=== PATIENT | female | born 1985 | race African-American/Black ===

== ENCOUNTER 2018-08-22 11:49 | Emergency (ER) | payer OTHER, SELFPAY ==
--- NOTE | 2018-08-22 16:07 | RAD REPORT ---
EXAM DESCRIPTION: US - TRANSVAG OB - 08/22/2018 3:57 pm CLINICAL HISTORY: VAGINAL BLEEDING COMPARISON: No comparisons FINDINGS: The uterus is normal in size, shape and echotexture. The uterus measures 7.5 x 4.6 x 4.0 c m. Endometrium measures 7 mm with no evidence of IUP. The maternal adnexa and ovaries are within normal limits. Normal Doppler blood flow was demonstrated to both ovaries. IMPRESSION: No evidence of IUP seen. In the setting of an elevated HCG level, findings would indicat e of unknown location. Close interval follow-up pelvic sonography in 7-10 days and serial H CG levels would be recommended.
[2018-08-22 16:23] LABS: Urine Blood 3+ (NEG); Urine Glucose NEGATIVE (NEG); Urine Protein 1+ (NEG); Urine Specific Gravity 1.025 (1.005-1.030)
--- NOTE | 2018-08-22 17:09 | ER ---
Nurse's Notes [facility] Name: Kasey Stapleton Age: 33 yrs Sex: Female : 1985 Arrival Date: 08/22/2018 Time: 11:52 Bed 7 Private MD: None, None Diagnosis: Threatened ;Acute upper respiratory infection, unspecified Presentation: 08/22 11:54 Presenting complaint: Patient states: suprapubic pain x 1 day, sore throat, "I want to sv see how far along I am, I'm .". Transition of care: patient was not received from another setting of care. Onset of symptoms was August 21, 2018. Care prior to arrival: None. 11:54 Method Of Arrival: Ambulatory sv 11:54 Acuity: MARGARET 3 sv Triage Assessment: 11:54 General: Appears in no apparent distress. uncomfortable, Behavior is cooperative, sv crying. Pain: Complains of pain in suprapubic area. Neuro: Level of Consciousness is awake, alert, obeys commands, Oriented to person, place, time, situation, Gait is steady. Respiratory: Respiratory effort is even, unlabored, Respiratory pattern is regular, symmetrical. GI: Reports lower abdominal pain. 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 Denies injuries from another. Nutritional hb screening: No deficits noted. Tuberculosis screening: No symptoms or risk factors identified. Fall Risk None identified. Assessment: 13:30 General: Appears in no apparent distress. Behavior is calm, cooperative. Pain: Pain hb currently is 1 out of 10 on a pain scale. Neuro: Level of Consciousness is awake, alert, obeys commands, Oriented to person, place, time, situation. Cardiovascular: Capillary refill < 3 seconds Patient's skin is warm and dry. Respiratory: Airway is patent Respiratory effort is even, unlabored, Respiratory pattern is regular, symmetrical. GI: Abdomen is non-distended, Bowel sounds present X 4 quads. Abd is soft and non tender X 4 quads. : Reports pain in suprapubic area. EENT: No signs and/or symptoms were reported regarding the EENT system. Derm: Skin is intact, is healthy with good turgor. Musculoskeletal: No signs and/or symptoms reported regarding the musculoskeletal system. 14:30 Reassessment: Patient appears in no apparent distress at this time. No changes from hb previously documented assessment. Patient and/or family updated on plan of care and expected duration. Pain level reassessed. Patient is alert, oriented x 3, equal unlabored respirations, skin warm/dry/pink. 15:30 Reassessment: Patient appears in no apparent distress at this time. No changes from hb previously documented assessment. Patient and/or family updated on plan of care and expected duration. Pain level reassessed. Patient is alert, oriented x 3, equal unlabored respirations, skin warm/dry/pink. 17:10 Reassessment: Pt was seen walking out seemingly upset with friend she was with. When ED ss staff called out her name in attempt to see if anything was wrong or if she was leaving, she continued to leave and get into her friends car. Attempted to call phone number on file which is an Aunt's phone number which does not seem to be a working number as patient still may have IV catheter in place. [place] [employer] has been notified and reports they will do a wellness check to the address on file as soon as they have an officer available. Vital Signs: 11:56 BP 151 / 111; Pulse 94; Resp 16; Temp 98.9; Pulse Ox 99% ; Height 5 ft. 6 in. (167.64 sv cm); ED Course: 11:52 Patient arrived in ED. dl4 11:52 None, None is Private Physician. dl4 11:55 Triage completed. sv 11:58 Arm band placed on. sv 13:42 Meng Gregorio PA is PHCP. jmm 13:42 Derrick Marrero MD is Attending Physician. jmm 14:00 Patient has correct armband on for positive identification. Placed in gown. Bed in low hb position. Call light in reach. Side rails up X 1. 14:02 Megan Johnston, RN is Primary Nurse. hb 15:15 Missed attempt(s): 20 gauge in right antecubital area. hb 15:20 Inserted saline lock: 22 gauge in right forearm, using aseptic technique. Blood hb collected. 16:01 TRANSVAG OB In Process Unspecified. EDMS 17:22 No provider procedures requiring assistance completed. Pt left with IV in place. SEE NURSES notes for further details. Administered Medications: No medications were administered Outcome: 17: Eloped from patient exam room, after seeing physician 17:22 Condition: stable 17:31 Patient left the ED. Signatures: Dispatcher [employer] EDMS Cydney Sánchez, RN RN Meng Gregorio PA PA jmm Smirch, Shelby, RN RN Megan Johnston RN RN hb Luna, David dl4 Corrections: (The following items were deleted from the chart) 11:57 11:56 Pulse Ox 99%; Temp 98.9F; Height 5 ft[address] [facility] [place]
--- NOTE | 2018-08-22 17:10 | EDPHYS ---
Physician Documentation [facility] Name: Kasey Stapleton Age: 33 yrs Sex: Female : 1985 Arrival Date: 08/22/2018 Time: 11:52 Bed 7 Private MD: None, None ED Physician Derrick Marrero HPI: 08/22 14:16 This 33 yrs old Black Female presents to ER via Ambulatory with complaints of Abdominal jmm Pain. 14:16 The patient presents with abdominal pain suprapubic. Onset: The symptoms/episode jmm began/occurred gradually. 17:04 This is a 33 year old that presents to the ED with complaints of suprapubic pain, jmm vaginal bleeding, sore throat and cough beginning yesterday. LMP mid June. . 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 17:04 : Positive for pelvic pain. 17:04 All other systems are negative. Exam: 17:04 Head/Face: atraumatic. Eyes: EOMI, no conjunctival erythema appreciated ENT: Moist jmm Mucus Membranes Neck: Trachea midline, Supple Chest/axilla: Normal chest wall appearance and motion. Cardiovascular: Regular rate and rhythm. No edema appreciated Respiratory: Normal respirations, no respiratory distress appreciated 17:04 Constitutional: The patient appears in no acute distress, alert, awake. 17:04 ENT: Posterior pharynx: erythema, that is mild. 17:04 Abdomen/GI: Inspection: abdomen appears normal, Bowel sounds: normal, Palpation: soft, mild abdominal tenderness, in the suprapubic area. 17:04 Back: ROM is normal. 17:04 Musculoskeletal/extremity: ROM: intact in all extremities. 17:04 Skin: Appearance: Color: normal in color. 17:04 Neuro: Orientation: is normal, Mentation: is normal, Memory: is normal. 17:04 Psych: Behavior/mood is pleasant, cooperative. Vital Signs: 11:56 BP 151 / 111; Pulse 94; Resp 16; Temp 98.9; Pulse Ox 99% ; Height 5 ft. 6 in. (167.64 sv cm); MDM: 14:16 Patient medically screened. [facility] 17:04 Data reviewed: vital signs, nurses notes. ED course: I discussed US findings with the [facility] patient. Labs still pending. Patient eloped from the ED. PD notified. . 08/22 14:23 Order name: Urine Dipstick-Ancillary (obtain specimen); Complete Time: 16:22 [facility] 08/22 14:23 Order name: Urine Test (obtain specimen); Complete Time: 16:22 [facility] 08/22 15:28 Order name: IV Saline Lock; Complete Time: 16:22 [facility] 08/22 15:28 Order name: Labs collected and sent; Complete Time: 16:22 [facility] 08/22 15:28 Order name: Urine Dipstick--Ancillary (enter results); Complete Time: 16:29 08/22 15:28 Order name: Urine --Ancillary (enter results); Complete Time: 16:29 08/22 15:38 Order name: TRANSVAG OB; Complete Time: 16:12 [facility] 08/22 15:28 Order name: NPO; Complete Time: 16:22 [facility] Administered Medications: No medications were administered Disposition: 18:40 Co-signature as Attending Physician, Derrick Marrero MD. ma2 Disposition: 08/22/18 17:09 Patient left the facility after being seen by provider. Preliminary diagnosis are Threatened , Acute upper respiratory infection, unspecified. - Patient left due to unknown. Signatures: Dispatcher [employer] [facility] Cydney Sánchez, Meng Rojas RN, PA PA [facility] Katharina Mustafa RN RN ss Alzahri, Mohammad, MD MD ma2 Corrections: (The following items were deleted from the chart) 15:38 15:30 1st Trimest Single 1st Fetus+US.RAD.BRZ ordered. [facility] 17:31 17:09 08/22/2018 17:09 Patient left the facility after being seen by provider. Preliminary diagnosis is Threatened ; Acute upper respiratory infection, unspecified. Reason stated they are leaving due to unknown. jmm
[2018-08-22 17:38] VITALS: BP 151/111; TEMP 98.9; O2SAT 99
== END 2018-08-22 17:31 | disposition left against medical advice (07) ==
LOC: ER 11:49
DX: O20.0 Threatened abortion (principal); J06.9 Acute upper respiratory infection, unspecified; Z53.20 Procedure and treatment not carried out because of patient's decision for unspecified reasons; Z3A.00 Weeks of gestation of pregnancy not specified
CPT/HCPCS: 76813; 81003; 81025; 99283

== ENCOUNTER 2019-08-08 19:16 | Emergency (ER) | payer OTHER, SELFPAY ==
[2019-08-08] MEDS ORDERED: ALBUTEROL 2.5 MG/3 ML NEB SOL ONE (20:40)
[2019-08-08] MEDS ORDERED: DIPHENHYDRAMINE 25 MG TAB/CAP ONE (20:40)
[2019-08-08] MEDS ORDERED: FAMOTIDINE 20 MG TAB ONE (20:41)
[2019-08-08] MEDS ORDERED: IPRATROPIUM BROM 0.5MG/2.5ML ONE (20:41)
[2019-08-08 22:42] LABS: Urine Blood NEGATIVE (NEG); Urine Glucose NEGATIVE (NEG); Urine Protein NEGATIVE (NEG); Urine Specific Gravity >1.030 (1.005-1.030)
[2019-08-08 22:47] LABS: Urine Bacteria <20 /HPF (<20); Urine Culture Reflex Order NOT NEEDED; Urine RBC <5 /HPF (NONE SEEN)
[2019-08-08 23:11] LABS: Absolute Lymphocytes (CBC) 3.5 K/uL (0.7-4.9); Basophils % 0.4 % (0-1.3); Hematocrit 39.1 % (36.0-45.0); MPV 10.1 fL (7.6-11.3); RBC Red Blood Cell Count 4.42 M/uL (3.86-4.86)
[2019-08-08 23:48] LABS: ALT/SGPT 33 U/L (12-78); AST/SGOT 26 U/L (15-37); Albumin 3.8 g/dL (3.4-5.0); Alkaline Phosphatase 73 U/L (45-117); BUN Blood Urea Nitrogen 17 mg/dL (7-18); Bicarbonate 27 mmol/L (21-32); Bilirubin Direct < 0.1 mg/dL (0-0.2); Bilirubin Total 0.1 mg/dL (0.2-1.0); Glucose Level 90 mg/dL (74-106); Lipase 205 U/L (73-393); Potassium 3.6 mmol/L (3.5-5.1); Protein, Total 7.9 g/dL (6.4-8.2); Sodium Level 139 mmol/L (136-145)
[2019-08-09 00:09] LABS: HCG, Quantitative 58817 mIU/mL (1-3)
--- NOTE | 2019-08-09 00:09 | EDPHYS ---
Physician Documentation [facility] Name: Kasey Stapleton Age: 34 yrs Sex: Female : 1985 Arrival Date: 08/08/2019 Time: 19:17 Bed 20 Private MD: ED Physician Jason Aldrich HPI: 08/08 20:35 This 34 yrs old Black Female presents to ER via Ambulatory with complaints of Breathing cp Difficulty - 7 wks preg. 20:35 The patient has shortness of breath at rest. Onset: The symptoms/episode began/occurred cp today. Duration: The symptoms are continuous, and are steadily getting worse. Associated signs and symptoms: Pertinent positives: non-productive cough, subjective fever last night, Pertinent negatives: chest pain, vomiting. Severity of symptoms: in the emergency department the symptoms are unchanged despite home interventions. Patient reports history of allergy to cats and after visiting [facility] today, she started having shortness of breath and feeling like throat was tight. Patient reports she is 7 weeks and since having recent US, c/o right upper abdomen pain. 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 - Social history:: Smoking status: Patient/guardian denies using tobacco, but has a distant history of tobacco abuse. - Ebola Screening: : Patient negative for fever greater than or equal to 101.5 degrees Fahrenheit, and additional compatible Ebola Virus Disease symptoms Patient denies exposure to infectious person Patient denies travel to an Ebola-affected area in the 21 days before illness onset No symptoms or risks identified at this time. ROS: 20:45 Constitutional: Negative for body aches, chills, fever, poor PO intake. cp 20:45 Eyes: Negative for injury, pain, redness, and discharge. cp 20:45 ENT: Negative for drainage from ear(s), ear pain, difficulty swallowing, difficulty handling secretions. 20:45 Cardiovascular: Negative for chest pain, edema. 20:45 Respiratory: Positive for cough, with no reported sputum, shortness of breath. 20:45 Abdomen/GI: Positive for abdominal pain, Negative for vomiting, diarrhea, constipation. 20:45 Back: Negative for radiated pain. 20:45 Skin: Negative for rash. 20:45 Neuro: Negative for headache, syncope, weakness. 20:45 All other systems are negative. Exam: 20:55 Constitutional: The patient appears in no acute distress, alert, awake, non-toxic, well cp developed, well nourished. 20:55 Head/Face: Normocephalic, atraumatic. cp 20:55 Eyes: Periorbital structures: appear normal, Pupils: equal, round, and reactive to cp light and accomodation, Extraocular movements: intact throughout, Conjunctiva: normal, no exudate, no injection, Sclera: no appreciated abnormality, Lids and lashes: appear normal, bilaterally. 20:55 ENT: External ear(s): are unremarkable, Ear canal(s): are normal, clear, TM's: cp dullness, bilaterally, Nose: is normal, Mouth: Lips: moist, Oral mucosa: pink and intact, moist, Posterior pharynx: is normal, airway is patent, no erythema, no exudate, Uvula: midline, swelling, is not appreciated. 20:55 Neck: ROM/movement: is normal, is supple, without pain, no range of motions limitations, no nuchal rigidity. 20:55 Chest/axilla: Inspection: normal, Palpation: is normal, no crepitus, no tenderness. 20:55 Cardiovascular: Rate: normal, Rhythm: regular, Edema: is not appreciated, JVD: is not appreciated. 20:55 Respiratory: the patient does not display signs of respiratory distress, Respirations: labored breathing, that is mild, intercostal retractions, are absent, shallow respirations, are not present, Breath sounds: decreased breath sounds, are not appreciated, stridor, is not appreciated, wheezing: is not appreciated. 20:55 Abdomen/GI: Inspection: gravid appearance, is noted, Bowel sounds: active, all quadrants, Palpation: soft, in all quadrants, mild abdominal tenderness, in the right upper quadrant, rebound tenderness, is not appreciated, involuntary guarding, is not appreciated. 20:55 Back: pain, is absent, ROM is normal. 20:55 Skin: no rash present. 20:55 Neuro: Orientation: to person, place \T\ time. Mentation: is normal, Motor: moves all fours, strength is normal. Vital Signs: 19:36 BP 153 / 99; Pulse 98; Resp 21 S; Temp 98.4(O); Pulse Ox 100% on R/A; Weight 65.77 kg ca1 (R); Height 5 ft. 6 in. (167.64 cm) (R); Pain 9/10; 20:35 BP 136 / 86; Pulse 94; Resp 16; Temp 98.5; Pulse Ox 99% on R/A; ch 21:24 BP 144 / 95; Pulse 92; Pulse Ox 100% ; ch 22:47 BP 134 / 82; Pulse 90; Resp 14; Pulse Ox 100% on R/A; ch 08/09 00:00 BP 126 / 80; Pulse 84; Resp 12; Temp 98.1; Pulse Ox 99% on R/A; Pain 3/10; ch 08/08 19:36 Body Mass Index 23.40 (65.77 kg, 167.64 cm) ca1 MDM: 08/08 20:32 Patient medically screened. cp 21:00 Differential diagnosis: asthma, Bronchitis anaphylaxis, angioedema, pancreatitis, cp non-specific abdominal pain. 08/09 00:07 Data reviewed: vital signs, nurses notes, lab test result(s), radiologic studies, cp ultrasound, and as a result, I will discharge patient. 00:07 Response to treatment: the patient's symptoms have markedly improved after treatment. cp 00:08 Special discussion: Based on the patient's Hx, exam, and Dx evaluation, there is no cp indication for emergent surgery or inpatient Tx. It is understood by the patient/guardian that if the Sx's persist or worsen they need to return immediately for re-evaluation. 08/08 19:38 Order name: Flu; Complete Time: 21:42 ca1 08/08 21:42 Interpretation: Reviewed. cp 08/08 19:38 Order name: Strep; Complete Time: 21:42 ca1 08/08 21:42 Interpretation: Reviewed. cp 08/08 20:18 Order name: Throat Culture EDAR 08/08 21:55 Order name: Basic Metabolic Panel; Complete Time: 02:27 cp 08/08 21:55 Order name: CBC with Diff; Complete Time: 23:32 cp 08/08 23:32 Interpretation: Normal except: WBC 16.9; NEUT A 11.9. 08/08 21:55 Order name: Creatinine for Radiology; Complete Time: 23:32 cp 08/08 21:55 Order name: Hepatic Function; Complete Time: 02:27 cp 08/08 23:58 Interpretation: Normal except: BILIT 0.1; GLOB 4.1; A/G 0.9. cp 08/08 21:55 Order name: Lipase; Complete Time: 02:27 cp 08/08 23:58 Interpretation: Within normal limits: LIP 205. cp 08/08 21:55 Order name: Urine Microscopic Only; Complete Time: 23:05 cp 08/08 21:55 Order name: US Transvaginal Ob cp 08/08 21:55 Order name: Beta hcg; Complete Time: 02:27 cp 08/08 22:30 Order name: Urine Dipstick--Ancillary (enter results); Complete Time: 22:47 mw2 08/08 22:47 Interpretation: Reviewed. 08/08 22:30 Order name: Urine --Ancillary (enter results); Complete Time: 22:47 mw2 08/08 22:47 Interpretation: Reviewed. 08/08 21:55 Order name: IV Saline Lock; Complete Time: 23:00 cp 08/08 21:55 Order name: Labs collected and sent; Complete Time: 23:00 cp 08/08 21:55 Order name: NPO; Complete Time: 22:13 cp 08/08 21:55 Order name: Urine Dipstick-Ancillary (obtain specimen); Complete Time: 22:13 cp 08/08 21:55 Order name: Urine Test (obtain specimen); Complete Time: 22:12 cp Administered Medications: 08/08 20:40 Drug: Benadryl 50 mg Route: PO; fc 22:13 Follow up: Response: No adverse reaction ch 20:40 Drug: Pepcid 20 mg Route: PO; fc 22:13 Follow up: Response: No adverse reaction ch 20:43 Drug: Albuterol 2.5 mg Route: Inhalation; fc 22:14 Follow up: Response: No adverse reaction ch 20:43 Drug: AtroVENT Aerosol 0.5 mg Route: Inhalation; fc 22:13 Follow up: Response: No adverse reaction Disposition: 08/09 07:37 Co-signature as Attending Physician, Jason Aldrich MD I agree with the assessment and tw4 plan of care. Disposition: 08/09/19 00:08 Discharged to Home. Impression: Allergy, unspecified, related conditions, unspecified, first trimester, Upper abdominal pain, unspecified. - Condition is Stable. - Discharge Instructions: Abdominal Pain During , Allergies, Adult. - Prescriptions for Albuterol Sulfate 90 mcg/actuation - inhale 1-2 puff by INHALATION route every 4-6 hours; 1 Inhaler. - Medication Reconciliation Form, Thank You Letter, Antibiotic Education, Prescription Opioid Use form. - Follow up: Private Physician; When: 2 - 3 days; Reason: Recheck today's complaints. - Problem is new. - Symptoms have improved. Signatures: Dispatcher [employer] EDMS Antonieta Andino RN RN Zainab Cain RN RN fc Jorge Ryan PA PA cp Wadley, Terrence, MD MD tw4 Mariah Genao RN RN ca1 Corrections: (The following items were deleted from the chart) 08/08 22:29 21:57 Abdomen Limited+US.RAD.BRZ ordered. EDMS EDMS 23:32 23:32 Normal except: WBC 16.9. cp cp 08/09 00:19 00:08 08/09/2019 00:08 Discharged to Home. Impression: Allergy, unspecified; ch related conditions, unspecified, first trimester; Upper abdominal pain, unspecified. Condition is Stable. Forms are Medication Reconciliation Form, Thank You Letter, Antibiotic Education, Prescription Opioid Use. Follow up: Private Physician; When: 2 - 3 days; Reason: Recheck today's complaints. Problem is new. Symptoms have improved. cp
--- NOTE | 2019-08-09 00:09 | ER ---
Nurse's Notes [facility] Name: Kasey Stapleton Age: 34 yrs Sex: Female : 1985 Arrival Date: 08/08/2019 Time: 19:17 Bed 20 Private MD: Diagnosis: Allergy, unspecified; related conditions, unspecified, first trimester;Upper abdominal pain, unspecified Presentation: 08/08 19:33 Presenting complaint: Patient states: "I feel like my throat is closing and I am having ca1 some pain on the R side of my Belly". Reports N/V, fever last night, cough x 2 days. Transition of care: patient was not received from another setting of care. Onset of symptoms was August 08, 2019. Risk Assessment: Do you want to hurt yourself or someone else? Patient reports no desire to harm self or others. Initial Sepsis Screen: Does the patient meet any 2 criteria? No. Patient's initial sepsis screen is negative. Does the patient have a suspected source of infection? No. Patient's initial sepsis screen is negative. Care prior to arrival: None. 19:33 Method Of Arrival: Ambulatory ca1 19:33 Acuity: MARGARET 3 ca1 Triage Assessment: 08/09 00:19 General: Appears in no apparent distress. comfortable. Respiratory: Onset: The ch symptoms/episode began/occurred gradually, the patient has moderate shortness of breath. 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 - Social history:: Smoking status: Patient/guardian denies using tobacco, but has a distant history of tobacco abuse. - Ebola Screening: : Patient negative for fever greater than or equal to 101.5 degrees Fahrenheit, and additional compatible Ebola Virus Disease symptoms Patient denies exposure to infectious person Patient denies travel to an Ebola-affected area in the 21 days before illness onset No symptoms or risks identified at this time. Screenin:56 Abuse screen: Denies threats or abuse. Denies injuries from another. Nutritional ch screening: No deficits noted. Tuberculosis screening: No symptoms or risk factors identified. Fall Risk None identified. Assessment: 20:56 General: Appears in no apparent distress. comfortable, Behavior is calm, cooperative, ch appropriate for age. Pain:. Cardiovascular: Heart tones S1 S2 present Capillary refill < 3 seconds in bilateral fingers toes Rhythm is regular. Respiratory: Airway is patent Respiratory effort is even, unlabored. 21:53 Neuro: No deficits noted. Respiratory: Breath sounds are clear bilaterally. GI: No ch signs and/or symptoms were reported involving the gastrointestinal system. Abdomen is round non-distended, Bowel sounds present X 4 quads. Abd is soft and non tender X 4 quads. : No signs and/or symptoms were reported regarding the genitourinary system. EENT: Throat is reddened Reports sore throat. Derm: No signs and/or symptoms reported regarding the dermatologic system. Skin is intact, Skin is dry, Skin is normal. Musculoskeletal: Circulation, motion, and sensation intact. 22:06 Reassessment: Patient appears in no apparent distress at this time. pt going to US now. ch will collect labs when pt returns. 22:47 Reassessment: Patient appears in no apparent distress at this time. Patient and/or ch family updated on plan of care and expected duration. Pain level reassessed. Patient is alert, oriented x 3, equal unlabored respirations, skin warm/dry/pink. Patient states symptoms have not improved. Vital Signs: 19:36 BP 153 / 99; Pulse 98; Resp 21 S; Temp 98.4(O); Pulse Ox 100% on R/A; Weight 65.77 kg ca1 (R); Height 5 ft. 6 in. (167.64 cm) (R); Pain 9/10; 20:35 BP 136 / 86; Pulse 94; Resp 16; Temp 98.5; Pulse Ox 99% on R/A; ch 21:24 BP 144 / 95; Pulse 92; Pulse Ox 100% ; ch 22:47 BP 134 / 82; Pulse 90; Resp 14; Pulse Ox 100% on R/A; ch 08/09 00:00 BP 126 / 80; Pulse 84; Resp 12; Temp 98.1; Pulse Ox 99% on R/A; Pain 3/10; ch 08/08 19:36 Body Mass Index 23.40 (65.77 kg, 167.64 cm) ca1 ED Course: 08/08 19:17 Patient arrived in ED. as 19:36 Triage completed. ca1 19:36 Arm band placed on right wrist. ca1 20:25 Jorge Ryan PA is PHCP. cp 20:25 Jason Aldrich MD is Attending Physician. cp 20:30 Antonieta Andino, JORDI is Primary Nurse. ch 20:56 No apparent distress. Resting quietly. ch 20:56 Patient has correct armband on for positive identification. Bed in low position. Call light in reach. Side rails up X 1. Adult w/ patient. Pulse ox on. NIBP on. Warm blanket given. PO fluids given. 20:56 No provider procedures requiring assistance completed. ch 22:29 US Transvaginal Ob In Process Unspecified. EDMS 22:40 Inserted saline lock: 22 gauge in left hand, using aseptic technique. Blood collected. 08/09 00:00 IV discontinued, intact, bleeding controlled, No redness/swelling at site. Pressure ch dressing applied. Administered Medications: 08/08 20:40 Drug: Benadryl 50 mg Route: PO; 22:13 Follow up: Response: No adverse reaction 20:40 Drug: Pepcid 20 mg Route: PO; fc 22:13 Follow up: Response: No adverse reaction 20:43 Drug: Albuterol 2.5 mg Route: Inhalation; fc 22:14 Follow up: Response: No adverse reaction 20:43 Drug: AtroVENT Aerosol 0.5 mg Route: Inhalation; fc 22:13 Follow up: Response: No adverse reaction Outcome: 08/09 00:08 Discharge ordered by . cp 00:19 Discharged to home ambulatory, with family. 00:19 Condition: improved 00:19 Discharge instructions given to patient, family, Instructed on discharge instructions, follow up and referral plans. medication usage, Demonstrated understanding of instructions, follow-up care, medications, Prescriptions given X 1. 00:19 Patient left the ED. Signatures: Dispatcher [employer] EDMS Antonieta Andino, JORDI BACON Zainab Sebastian RN RN fc Ana Phillips as Jorge Ryan PA PA cp Acob, Cheryl, RN RN ca1 Corrections: (The following items were deleted from the chart) 08/08 22:51 20:56 Patient did not have IV access during this emergency room visit. ch
[2019-08-09 01:15] VITALS: BP 126/80; TEMP 98.1; O2SAT 99
--- NOTE | 2019-08-09 14:21 | RAD REPORT ---
EXAM DESCRIPTION: US - Transvaginal OB - 08/08/2019 10:29 pm CLINICAL HISTORY: with pelvic pain COMPARISON: None. FINDINGS: The uterus measures 10 x 6 x 5 centimeters. within this is a yolk sac and pole with a crown-rump length 9 millimeters. The gestational sac is in the very superior aspect of the fundus. Myometrium separates the decidual reaction from the edge of the uterus by approximately 4.5 millimet ers Cardiac activity 143 beats per minute The right ovary is normal in size and echotexture. The left ovary was not seen. An adnexal mass is no t noted. No significant free fluid is seen. IMPRESSION: Single live intrauterine with an estimated gestational age 6 weeks 6 days FREDERIC 03/27/2020 . It is uncertain whether this lies within the uterus or is a subtle cornual ectopic . Close follow-up with serial beta HCG levels recommended. Exam was discussed with Doctor Hinkle in the Emergency Room at 2:10 p.m. August 09, 2019
== END 2019-08-09 00:19 | disposition home or self-care (01) ==
LOC: ER 19:16
DX: O26.891 Other specified pregnancy related conditions, first trimester (principal); J30.81 Allergic rhinitis due to animal (cat) (dog) hair and dander; Z3A.01 Less than 8 weeks gestation of pregnancy
CPT/HCPCS: 36415; 76817; 80048; 80076; 81003; 81015; 81025; 83690; 84702; 85025; 87070; 87081; 87804; 99284

== ENCOUNTER 2019-12-09 15:58 | Emergency (ER) | payer OTHER ==
[2019-12-09 18:00] LABS: Basophils % 0.6 % (0-1.3); Hematocrit 33.6 % (36.0-45.0); Lymphocytes % 16.9 % (15.3-44.8); MPV 9.4 fL (7.6-11.3); RBC Red Blood Cell Count 3.92 M/uL (3.86-4.86)
[2019-12-09] MEDS ORDERED: ACETAMINOPHEN 325 MG TABLET ONE (18:00)
[2019-12-09 18:30] LABS: ALT/SGPT 29 U/L (12-78); AST/SGOT 19 U/L (15-37); Albumin 2.9 g/dL (3.4-5.0); Alkaline Phosphatase 71 U/L (45-117); BUN Blood Urea Nitrogen 7 mg/dL (7-18); Bicarbonate 24 mmol/L (21-32); Bilirubin Direct < 0.1 mg/dL (0-0.2); Glucose Level 91 mg/dL (74-106); Protein, Total 7.4 g/dL (6.4-8.2); Sodium Level 140 mmol/L (136-145); Thyroid Stimulating Hormone 0.569 uIU/mL (0.360-3.740)
[2019-12-09 18:30] LABS: Urine Blood NEGATIVE (NEG); Urine Glucose NEGATIVE (NEG); Urine Protein NEGATIVE (NEG); Urine Specific Gravity 1.025 (1.005-1.030); Urine pH 8.5 (5.0-7.0)
[2019-12-09 18:43] LABS: Urine Amorphous Sediment 3+ /HPF (NONE SEEN); Urine Bacteria <20 /HPF (<20); Urine Culture Reflex Order NOT NEEDED; Urine RBC <5 /HPF (NONE SEEN)
[2019-12-09 18:47] LABS: Bilirubin Total < 0.1 mg/dL (0.2-1.0)
--- NOTE | 2019-12-09 20:11 | EDPHYS ---
Physician Documentation [facility] Name: Kasey Stapleton Age: 34 yrs Sex: Female : 1985 Arrival Date: 12/09/2019 Time: 16:00 Bed 13 Private MD: ED Physician Karsten Henderson HPI: 12/08 18:09 This 34 yrs old Black Female presents to ER via Ambulatory with complaints of Bilateral pm1 wrist pain and hand numbness. 18:09 Onset: The symptoms/episode began/occurred 2 week(s) ago. Treatment prior to arrival pm1 includes: no previous treatment. Modifying factors: The symptoms are alleviated by nothing. Associated signs and symptoms: Pertinent negatives: decreased range of motion, deformity, swelling. Severity of symptoms: in the emergency department the symptoms are actually worse. Patient with A3. Patient stopped taking her [place] about two weeks ago due to the feeling that her fetus would stop moving when she would get the weekly injections. Patient was taking the medication due to incompetent cervix. Patient without any complaints of pelvic/abdominal pain, vaginal bleeding or discharge. Patient reports that since stopping Clarence she has noticed that both her wrist are hurting with numbness and tingling to both of her hands that has gotten worse. Historical: - Allergies: 16:05 cats; sv - PMHx: 16:05 Hypertension; sv - PSHx: 16:05 Cholecystectomy; sv - Immunization history:: Flu vaccine is not up to date. - Social history:: Smoking status: Patient reports the use of cigarette tobacco products, denies chronic smoking, but will smoke occasionally. ROS: 18:09 Constitutional: Negative for fever, chills, and weight loss, Neck: Negative for injury, pm1 pain, and swelling, Cardiovascular: Negative for chest pain, palpitations, and edema, Respiratory: Negative for shortness of breath, cough, wheezing, and pleuritic chest pain, Abdomen/GI: Negative for abdominal pain, nausea, vomiting, diarrhea, and constipation, Back: Negative for injury and pain. 18:09 Skin: Negative for injury, rash, and discoloration, Neuro: Negative for headache, weakness, and seizure. 18:09 MS/extremity: Positive for pain, paresthesias, tingling, of the right hand and left hand and bilateral wrists. Exam: 18:09 Constitutional: This is a well developed, well nourished patient who is awake, alert, pm1 and in no acute distress. Head/Face: Normocephalic, atraumatic. Neck: Trachea midline, no thyromegaly or masses palpated, and no cervical lymphadenopathy. Supple, full range of motion without nuchal rigidity, or vertebral point tenderness. No Meningismus. Chest/axilla: Normal chest wall appearance and motion. Nontender with no deformity. No lesions are appreciated. 18:09 Back: No spinal tenderness. No costovertebral tenderness. Full range of motion. Skin: Warm, dry with normal turgor. Normal color with no rashes, no lesions, and no evidence of cellulitis. 18:09 Cardiovascular: Exam negative for acute changes, Rate: normal, Rhythm: regular, Pulses: no pulse deficits are appreciated. 18:09 Respiratory: Exam negative for acute changes, respiratory distress, shortness of breath. 18:09 Abdomen/GI: Exam negative for acute changes, Inspection: gravid appearance, is noted, Palpation: abdomen is soft and non-tender, in all quadrants. 18:09 Musculoskeletal/extremity: Extremities: grossly normal except: noted in the Positive for phalen and tinnel sign bialterally: 18:09 Neuro: Exam negative for acute changes, Orientation: is normal, Mentation: is normal, pm1 Motor: moves all fours. Vital Signs: 16:05 BP 142 / 86; Pulse 99; Resp 24; Temp 98.1; Pulse Ox 99% ; Weight 88.45 kg; Height 5 ft. sv 5 in. (165.10 cm); 18:57 BP 161 / 95; Pulse 106; Resp 18; Pulse Ox 100% ; ah 20:18 BP 165 / 86; Pulse 99; Resp 18; Pulse Ox 100% ; ah 16:05 Body Mass Index 32.45 (88.45 kg, 165.10 cm) sv MDM: 17:27 Patient medically screened. pm1 19:56 Data reviewed: vital signs. Data interpreted: Pulse oximetry: on room air is 99 %. pm1 Interpretation: normal. Counseling: I had a detailed discussion with the patient and/or guardian regarding: the historical points, exam findings, and any diagnostic results supporting the discharge/admit diagnosis, lab results, the need for outpatient follow up, to return to the emergency department if symptoms worsen or persist or if there are any questions or concerns that arise at home. 19:56 Differential diagnosis: Carpal tunnel, hypothyroidism, hyperthyroidism, preeclampsia. pm1 19:56 ED course: Patient without any protein present in urine. Patient's blood pressure pm1 likely elevated due to pain from carpel tunnel syndrome. I do not think that preeclampsia is present. Due to patient being , only pain mediation I recommended to her is Tylenol and using bilateral splints. Patient reported improvement with splinting. 12/08 17:27 Order name: LDH; Complete Time: 19:03 pm1 12/08 17:27 Order name: TSH; Complete Time: 19:03 pm1 12/08 17:27 Order name: Basic Metabolic Panel; Complete Time: 19:03 pm1 12/08 17:27 Order name: CBC with Diff; Complete Time: 18:35 pm1 12/08 17:27 Order name: Hepatic Function; Complete Time: 19:03 pm1 12/08 17:27 Order name: Urine Microscopic Only; Complete Time: 19:03 pm1 12/08 17:27 Order name: IV Saline Lock; Complete Time: 17:45 pm1 12/08 17:27 Order name: Labs collected and sent; Complete Time: 17:45 pm1 18 17:27 Order name: Urine Dipstick-Ancillary (obtain specimen); Complete Time: 18:02 pm1 12/08 18:14 Order name: Urine Dipstick--Ancillary (enter results); Complete Time: 18:35 lt1 12/08 18:14 Order name: Urine --Ancillary (enter results); Complete Time: 18:35 lt1 12/08 19:04 Order name: FHT's; Complete Time: 21:36 pm1 12/08 19:56 Order name: Splint - Wrist: bilateral; Complete Time: 21:36 pm1 Administered Medications: 18:01 Drug: Tylenol 650 mg Route: PO; 19:00 Follow up: Response: No adverse reaction Disposition: 12/09/19 20:10 Discharged to Home. Impression: Carpal tunnel syndrome. - Condition is Stable. - Discharge Instructions: Carpal Tunnel Syndrome, Wrist Splint. - Medication Reconciliation Form, Thank You Letter, Antibiotic Education, Prescription Opioid Use form. - Follow up: Emergency Department; When: As needed; Reason: Worsening of condition. Follow up: Private Physician; When: 2 - 3 days; Reason: Recheck today's complaints, Continuance of care, Re-evaluation by your physician. - Problem is new. - Symptoms have improved. Addendum: 12/16/2019 07:09 Co-signature as Attending Physician, Karsten Henderson MD. r n Signatures: Dispatcher [employer] Cydney Rubalcava RN RN sv Nieto, Roman, MD MD rn Marinas, Patrick, MANAGED SECURITY SALES CONSULTANT MANAGED SECURITY SALES CONSULTANT pm1 Radha Martinez RN RN Corrections: (The following items were deleted from the chart) 12/08 21:04 20:10 12/09/2019 20:10 Discharged to Home. Impression: Carpal tunnel syndrome. ah Condition is Stable. Forms are Medication Reconciliation Form, Thank You Letter, Antibiotic Education, Prescription Opioid Use. Follow up: Emergency Department; When: As needed; Reason: Worsening of condition. Follow up: Private Physician; When: 2 - 3 days; Reason: Recheck today's complaints, Continuance of care, Re-evaluation by your physician. Problem is new. Symptoms have improved. pm1 12/09 00:46 12/08 18:09 Skin: Negative for injury, rash, and discoloration, Neuro: Negative for pm1 headache, weakness, numbness, tingling, and seizure, pm1
--- NOTE | 2019-12-09 20:11 | ER ---
Nurse's Notes [facility] Name: Kasey Stapleton Age: 34 yrs Sex: Female : 1985 Arrival Date: 12/09/2019 Time: 16:00 Bed 13 Private MD: Diagnosis: Carpal tunnel syndrome Presentation: 12/08 16:02 Chief complaint: Patient states: stopped taking her [place] IM injections on 11/28/19 sv because they couldn't get it last time and ever since stopping the injections has had numbness to bilateral fingers and pain extends up to the bilateral forearms and is unable to make a fist with her hands. Pt is 25 weeks . Coronavirus screen: Proceed with normal triage. Patient denies a cough. Patient denies shortness of breath or difficulty breathing. Patient denies measured and/or subjective temperature greater than 100.4F prior to today's visit. Patient denies travel on a cruise ship or to a country the [facility] currently lists as an affected area. Patient denies contact with known and/or suspected case of COVID-19. Ebola Screen: No symptoms or risks identified at this time. Risk Assessment: Do you want to hurt yourself or someone else? Patient reports no desire to harm self or others. Onset of symptoms was November 28, 2019. 16:02 Method Of Arrival: Ambulatory sv 16:02 Acuity: MARGARET 3 sv 16:05 Initial Sepsis Screen: Does the patient meet any 2 criteria? HR > 90 bpm. No. Patient's sv initial sepsis screen is negative. Does the patient have a suspected source of infection? No. Patient's initial sepsis screen is negative. Triage Assessment: 16:08 General: Appears in no apparent distress. uncomfortable, Behavior is cooperative, sv appropriate for age, anxious. Pain: Complains of pain in right arm and left arm. Neuro: Level of Consciousness is awake, alert, obeys commands, Oriented to person, place, time, situation, Gait is steady, Speech is normal, Reports numbness in right thumb, right middle finger, right ring finger, Right index finger, left ring finger, left middle finger, left index finger and left thumb. Respiratory: Respiratory effort is even, unlabored, Respiratory pattern is symmetrical, tachypnea. Historical: - Allergies: 16:05 cats; sv - PMHx: 16:05 Hypertension; sv - PSHx: 16:05 Cholecystectomy; sv - Immunization history:: Flu vaccine is not up to date. - Social history:: Smoking status: Patient reports the use of cigarette tobacco products, denies chronic smoking, but will smoke occasionally. Screenin:59 Abuse screen: Denies threats or abuse. Nutritional screening: No deficits noted. Tuberculosis screening: No symptoms or risk factors identified. Fall Risk None identified. Assessment: 17:00 General: Appears uncomfortable, Behavior is cooperative, appropriate for age. Pain: ah Complains of pain in bilateral wrists. 17:00 Neuro: Level of Consciousness is awake, alert, Oriented to person, place, time, ah situation, Nurse Auditor are weak bilaterally Weakness. Cardiovascular: Capillary refill < 3 seconds Patient's skin is warm and dry. Respiratory: Airway is patent Respiratory effort is even, unlabored, Respiratory pattern is regular, symmetrical. GI: No signs and/or symptoms were reported involving the gastrointestinal system. : No signs and/or symptoms were reported regarding the genitourinary system. EENT: No signs and/or symptoms were reported regarding the EENT system. Derm: No signs and/or symptoms reported regarding the dermatologic system. Musculoskeletal: Range of motion: limited in bilateral wrists and forearms Reports weakness in bilateral wrists/forearms numbness in bilateral wrists/forearms. 18:00 Reassessment: Patient and/or family updated on plan of care and expected duration. Pain ah level reassessed. Awaiting results from labs and radiology. Pt lying in bed with no needs voiced at this time. 19:30 Reassessment: Pt states that she is still in pain. Explained to Pt that after discussing with provider, he does not feel comfortable giving her any narcotics since she is high risk and has had several miscarriages. Pt voiced understanding. 20:30 Reassessment: Discharge instructions given. Advised pt to follow up with [facility] and inform them of new dx so they can help manage pain and refer for therapy.Splints placed on bilateral wrists. Pt voiced understanding. of discharge instructions. Vital Signs: 16:05 BP 142 / 86; Pulse 99; Resp 24; Temp 98.1; Pulse Ox 99% ; Weight 88.45 kg; Height 5 ft. sv 5 in. (165.10 cm); 18:57 BP 161 / 95; Pulse 106; Resp 18; Pulse Ox 100% ; 20:18 BP 165 / 86; Pulse 99; Resp 18; Pulse Ox 100% ; ah 16:05 Body Mass Index 32.45 (88.45 kg, 165.10 cm) ED Course: 16:00 Patient arrived in ED. mr 16:05 Triage completed. 16:05 Arm band placed on. 17:20 Radha Martinez RN is Primary Nurse. 17:24 Hardeep Hodges NP is PHCP. pm1 17:24 Karsten Henderson MD is Attending Physician. pm1 17:48 Initial lab(s) drawn, by wi, sent to lab. Inserted saline lock: 20 gauge in right lt1 forearm, using aseptic technique. 20:30 Patient has correct armband on for positive identification. Bed in low position. Call light in reach. Side rails up X 1. 20:59 No provider procedures requiring assistance completed. IV discontinued, intact, bleeding controlled, No redness/swelling at site. Pressure dressing applied. Velcro wrist splint applied to bilateral wrist. Administered Medications: 18:01 Drug: Tylenol 650 mg Route: PO; 19:00 Follow up: Response: No adverse reaction Outcome: 20:10 Discharge ordered by MD. pm1 20:45 Discharged to home ambulatory. 20:45 Condition: good 20:45 Discharge instructions given to patient, Instructed on discharge instructions, follow up and referral plans. Demonstrated understanding of instructions, follow-up care. 21:04 Patient left the ED. Signatures: Cydney Sánchez RN RN [place] mr Hardeep Hodges NP [employer] DEPARTMENT MARINE ENGINEER pm1 [place], [place] [address] Radha Martinez, JORDI RN Corrections: (The following items were deleted from the chart) 16:07 16:05 Pulse 99bpm; Resp 24bpm; Pulse Ox 99%; Temp 98.1F; 88.45 kg; Height 5 ft. 5 in.; BMI: 32.4;
[2019-12-09 21:39] VITALS: TEMP 98.1
[2019-12-09 21:41] VITALS: O2SAT 100
[2019-12-09 21:42] VITALS: BP 165/86
== END 2019-12-09 21:04 | disposition home or self-care (01) ==
LOC: ER 15:58
DX: O26.892 Other specified pregnancy related conditions, second trimester (principal); G56.03 Carpal tunnel syndrome, bilateral upper limbs; O99.332 Smoking (tobacco) complicating pregnancy, second trimester; F17.210 Nicotine dependence, cigarettes, uncomplicated
CPT/HCPCS: 36415; 80048; 80076; 81003; 81015; 81025; 83615; 84443; 85025; 99284

== ENCOUNTER 2020-10-06 19:10 | Emergency (ER) | payer OTHER ==
[2020-10-06 19:39] LABS: Absolute Lymphocytes (CBC) 3.2 K/uL (0.7-4.9); Basophils % 0.5 % (0-1.3); Hematocrit 40.8 % (36.0-45.0); Lymphocytes % 30.1 % (15.3-44.8); MPV 10.2 fL (7.6-11.3); RBC Red Blood Cell Count 4.96 M/uL (3.86-4.86)
--- NOTE | 2020-10-06 19:44 | RAD REPORT ---
EXAM DESCRIPTION: CT - Ct Stroke Brain Wo Cont - 10/06/2020 7:22 pm CLINICAL HISTORY: NUMBNESS Headache, drowsiness, CVA symptomology COMPARISON: Head Brain Wo Cont dated 10/07/2017; Head Brain Wo Cont dated 01/15/2016 TECHNIQUE: All CT scans are performed using dose optimization technique as appropriate and may inclu de automated exposure control or mA/KV adjustment according to patient size. FINDINGS: No intracranial hemorrhage, hydrocephalus or extra-axial fluid collection.No areas of brai n edema or evidence of midline shift. The paranasal sinuses and mastoids are clear. The calvarium is intact. IMPRESSION: No acute intracranial abnormality. The findings were discussed with Dr Hinkle in the ER on 10/06/2020 at 7:30 p.m. by telephone.
--- NOTE | 2020-10-06 19:45 | RAD REPORT ---
EXAM DESCRIPTION: RAD - Chest Single View - 10/06/2020 7:31 pm CLINICAL HISTORY: CHEST PAIN Chest pain. COMPARISON: Chest Single View dated 11/02/2016 FINDINGS: Portable technique limits examination quality. The lungs are grossly clear. The heart is normal in size. No displaced fractures. IMPRESSION: No acute intrathoracic process suspected.
[2020-10-06 19:52] LABS: BUN Blood Urea Nitrogen 11 mg/dL (7-18); Bicarbonate 31 mmol/L (21-32); Glucose Level 118 mg/dL (74-106); Potassium 3.6 mmol/L (3.5-5.1); Sodium Level 143 mmol/L (136-145)
--- NOTE | 2020-10-06 20:20 | ER ---
Nurse's Notes [facility] Name: Kasey Stapleton Age: 35 yrs Sex: Female : 1985 Arrival Date: 10/06/2020 Time: 19:11 Bed 3 Private MD: Diagnosis: Goetz's palsy;Essential (primary) hypertension Presentation: 10/06 19:13 Chief complaint: EMS states: Pt complaining of facial drooping and tingling to left ea side of face, arms and legs, reports it has been going on for three days. Pt reports she isn't able to talk normally. EMS reports gait is normal without deficits. Coronavirus screen: At this time, the client does not indicate any symptoms associated with coronavirus-19. Ebola Screen: No symptoms or risks identified at this time. Initial Sepsis Screen: Does the patient meet any 2 criteria? No. Patient's initial sepsis screen is negative. Does the patient have a suspected source of infection? No. Patient's initial sepsis screen is negative. Risk Assessment: Do you want to hurt yourself or someone else? Patient reports no desire to harm self or others. Onset of symptoms was October 06, 2020. 19:13 Method Of Arrival: EMS: [facility] ea 19:13 Acuity: MARGARET 3 ea Historical: - Allergies: 19:26 cats; ea - Home Meds: 19:26 Vitamin Oral [Active]; ea - PMHx: 19:26 Hypertension; ea - PSHx: 19:26 Cholecystectomy; ea - Immunization history:: Adult Immunizations up to date. - Social history:: Smoking status: Patient denies any tobacco usage or history of. Screenin:13 VAN Screening: Arm Drift: Patient shows no arm weakness. Patient is VAN negative. ea 19:15 Abuse screen: Denies threats or abuse. Nutritional screening: No deficits noted. ea Tuberculosis screening: No symptoms or risk factors identified. Fall Risk None identified. 19:37 The patient has not been NPO before screening. The patient is alert, able to follow ea commands. The patient exhibits slurred or garbled speech. Assessment: 19:13 General: Appears in no apparent distress. Behavior is calm, cooperative. Pain: ea Complains of pain in left arm and left leg Quality of pain is described as tingling, Pain began three days ago. Neuro: Level of Consciousness is awake, alert, obeys commands, Oriented to person, place, time, situation, Food Counter Attendant are equal bilaterally Moves all extremities. Speech is slurred, Facial droop on left. Cardiovascular: Patient's skin is warm and dry. Respiratory: Airway is patent Respiratory effort is even, unlabored, Respiratory pattern is regular, symmetrical. Derm: Skin is pink, warm \T\ dry. Musculoskeletal: Circulation, motion, and sensation intact. 19:45 Reassessment: Lloyd (Brother) [phone]. ea Vital Signs: 19:13 BP 159 / 110; Pulse 94; Resp 20; Pulse Ox 100% ; ea 19:38 Weight 74.84 kg; Height 5 ft. 5 in. (165.10 cm); ea 19:38 Body Mass Index 27.46 (74.84 kg, 165.10 cm) ea ED Course: 19:10 Inserted saline lock: 20 gauge in left antecubital area, using aseptic technique. ea ,using aseptic technique. Per Thomas RN Blood collected. 19:11 Patient arrived in ED. ea 19:15 Triage completed. ea 19:15 Jorge Hinkle MD is Attending Physician. clemente 19:15 Arm band placed on right wrist. Patient placed in an exam room, on a stretcher, on ea ekg monitor tech, on pulse oximetry. EKG completed in triage. Results shown to MD. 19:18 Patient has correct armband on for positive identification. Bed in low position. Call ea light in reach. Side rails up X2. 19:22 CT Stroke Brain w/o Contrast In Process Unspecified. EDMS 19:31 Stroke CXR 1 View In Process Unspecified. EDMS 19:32 Yadira Bates, JORDI is Primary Nurse. ea 20:19 Brandon Stevenson MD is Referral Physician. clemente 20:47 No provider procedures requiring assistance completed. IV discontinued, intact, ea bleeding controlled, No redness/swelling at site. Pressure dressing applied. Administered Medications: 20:30 Drug: Norvasc (amlodipine) 5 mg Route: PO; ea 20:40 Drug: Valtrex 1000 mg Route: PO; ea 20:40 Drug: predniSONE 60 mg Route: PO; ea 20:40 Drug: Aspirin Chewable Tablet 324 mg Route: PO; ea Outcome: 20:19 Discharge ordered by . clemente 20:47 Discharged to home ambulatory, with family. ralf 20:47 Condition: stable 20:47 Discharge instructions given to patient, Instructed on discharge instructions, follow up and referral plans. medication usage, Demonstrated understanding of instructions, follow-up care, medications, Prescriptions given X 4. 20:48 Patient left the ED. ea Signatures: Dispatcher [employer] EDMS Jorge Hinkle MD MD cha Antunez, Elena, RN RN ralf Corrections: (The following items were deleted from the chart) 19:18 19:13 Chief complaint: EMS states: Pt complaining of facial drooping and tingling to ea left side of face, arms and legs, reports it has been going on for three days. ea
--- NOTE | 2020-10-06 20:20 | EDPHYS ---
Physician Documentation [facility] Name: Kasey Stapleton Age: 35 yrs Sex: Female : 1985 Arrival Date: 10/06/2020 Time: 19:11 Bed 3 Private MD: ED Physician Jorge Hinkle HPI: 10/06 20:04 This 35 yrs old Black Female presents to ER via EMS with complaints of left facial clemente weakness x 2 days. 20:04 The patient presents to the emergency department with weakness of the left side of the clemente face, complete paralysis. Onset: The symptoms/episode began/occurred 2 day(s) ago. Context: occurred at home. Associated signs and symptoms: Pertinent positives: paresthesias, left face. Severity of symptoms: At their worst the symptoms were moderate in the emergency department the symptoms are unchanged. Patient's baseline: Neuro: alert and fully oriented. Current symptoms: Currently, the patient is not experiencing any symptoms. The patient has not experienced similar symptoms in the past. Historical: - Allergies: 19:26 cats; ea - Home Meds: 19:26 Vitamin Oral [Active]; ea - PMHx: 19:26 Hypertension; ea - PSHx: 19:26 Cholecystectomy; ea - Immunization history:: Adult Immunizations up to date. - Social history:: Smoking status: Patient denies any tobacco usage or history of. ROS: 20:13 Constitutional: Negative for fever, chills, and weight loss, Eyes: Negative for injury, clemente pain, redness, and discharge, ENT: Negative for injury, pain, and discharge, Neck: Negative for injury, pain, and swelling, Cardiovascular: Negative for chest pain, palpitations, and edema, Respiratory: Negative for shortness of breath, cough, wheezing, and pleuritic chest pain, Abdomen/GI: Negative for abdominal pain, nausea, vomiting, diarrhea, and constipation, Back: Negative for injury and pain, : Negative for injury, bleeding, discharge, and swelling, MS/Extremity: Negative for injury and deformity, Skin: Negative for injury, rash, and discoloration, Psych: Negative for depression, anxiety, suicide ideation, homicidal ideation, and hallucinations, Allergy/Immunology: Negative for hives, rash, and allergies, Endocrine: Negative for neck swelling, polydipsia, polyuria, polyphagia, and marked weight changes, Hematologic/Lymphatic: Negative for swollen nodes, abnormal bleeding, and unusual bruising. 20:13 Neuro: Positive for weakness, of the forehead, left cheek, left eye, mouth, chin, left zoroastrianism and left jaw. Exam: 20:13 Constitutional: This is a well developed, well nourished patient who is awake, alert, clemente and in no acute distress. Head/Face: Normocephalic, atraumatic. Eyes: Pupils equal round and reactive to light, extra-ocular motions intact. Lids and lashes normal. Conjunctiva and sclera are non-icteric and not injected. Cornea within normal limits. Periorbital areas with no swelling, redness, or edema. ENT: Nares patent. No nasal discharge, no septal abnormalities noted. Tympanic membranes are normal and external auditory canals are clear. Oropharynx with no redness, swelling, or masses, exudates, or evidence of obstruction, uvula midline. Mucous membranes moist. Neck: Trachea midline, no thyromegaly or masses palpated, and no cervical lymphadenopathy. Supple, full range of motion without nuchal rigidity, or vertebral point tenderness. No Meningismus. Chest/axilla: Normal chest wall appearance and motion. Nontender with no deformity. No lesions are appreciated. Cardiovascular: Regular rate and rhythm with a normal S1 and S2. No gallops, murmurs, or rubs. Normal PMI, no JVD. No pulse deficits. Respiratory: Lungs have equal breath sounds bilaterally, clear to auscultation and percussion. No rales, rhonchi or wheezes noted. No increased work of breathing, no retractions or nasal flaring. Abdomen/GI: Soft, non-tender, with normal bowel sounds. No distension or tympany. No guarding or rebound. No evidence of tenderness throughout. Back: No spinal tenderness. No costovertebral tenderness. Full range of motion. Skin: Warm, dry with normal turgor. Normal color with no rashes, no lesions, and no evidence of cellulitis. MS/ Extremity: Pulses equal, no cyanosis. Neurovascular intact. Full, normal range of motion. Psych: Awake, alert, with orientation to person, place and time. Behavior, mood, and affect are within normal limits. 20:13 Neuro: Orientation: is normal, appropriate for stated age, no acute changes, Mentation: is normal, appropriate for stated age, no acute changes, Memory: is normal, appropriate for stated age, no acute changes, Cranial nerves: facial droop noted on left, with forehead involved. Cerebellar function: is grossly normal based on the patient's age, no acute changes, Motor: is normal, is grossly normal based on the patient's age, no acute changes, moves all fours, Sensation: is normal, no obvious gross deficits, appropriate no acute changes, Gait: is steady, appropriate for age, Deep tendon reflexes are 2+ (normal) in the bilateral brachioradialis, bicep, tricep and patellar and Achilles tendons, Babinski testing is normal, seizure activity, focal in nature is displayed by patient. 20:15 ECG was reviewed by the Attending Physician. [facility] Vital Signs: 19:13 BP 159 / 110; Pulse 94; Resp 20; Pulse Ox 100% ; ea 19:38 Weight 74.84 kg; Height 5 ft. 5 in. (165.10 cm); ea 19:38 Body Mass Index 27.46 (74.84 kg, 165.10 cm) ea MDM: 19:15 Patient medically screened. [facility] 20:16 Data reviewed: vital signs, nurses notes, lab test result(s), EKG, radiologic studies, [facility] CT scan, plain films. Data interpreted: environmental monitoring technician: rate is 100 beats/min, rhythm is regular, Pulse oximetry: on room air is 100 %. Test interpretation: by ED physician or midlevel provider: ECG, plain radiologic studies. Counseling: I had a detailed discussion with the patient and/or guardian regarding: the historical points, exam findings, and any diagnostic results supporting the discharge/admit diagnosis, lab results, radiology results, the need for outpatient follow up, for definitive care, a neurologist. Physician consultation: Brandon Stevenson MD and will see patient in office, agrees with goetz's palsy diagnosis. 10/06 19:12 Order name: Basic Metabolic Panel; Complete Time: 20: 10/06 19:12 Order name: CBC with Diff; Complete Time: 20: 10/06 19:12 Order name: Protime (+inr); Complete Time: 20: 10/06 19:12 Order name: Ptt, Activated; Complete Time: 20: 10/06 19:28 Order name: glucometer results - FOR PT WITH NO ID 10/06 20:40 Order name: Urine --Ancillary (enter results) tt3 10/06 19:12 Order name: CT Stroke Brain w/o Contrast; Complete Time: 20:02 10/06 19:12 Order name: Stroke CXR 1 View; Complete Time: 20:02 10/06 19:12 Order name: EKG; Complete Time: 19:14 10/06 20:40 Order name: Urine Dipstick--Ancillary (enter results) tt3 10/06 19:12 Order name: Accucheck; Complete Time: 19:36 10/06 19:12 Order name: Cardiac monitoring; Complete Time: 19:36 10/06 19:12 Order name: EKG - Nurse/Tech; Complete Time: 19:36 10/06 19:12 Order name: IV Saline Lock; Complete Time: 19:36 10/06 19:12 Order name: Labs collected and sent; Complete Time: 19:36 10/06 19:12 Order name: NPO; Complete Time: 19:36 10/06 19:12 Order name: O2 Per Protocol; Complete Time: 19:36 10/06 19:12 Order name: O2 Sat Monitoring; Complete Time: 19:36 10/06 19:12 Order name: Stroke Swallow Screen; Complete Time: 19:37 ea EC:15 Rate is 74 beats/min. Rhythm is regular. QRS [place] is Normal. DC interval is normal. QRS clemente interval is normal. QT interval is normal. No Q waves. T waves are Normal. No ST changes noted. Clinical impression: NSR w/ Non-specific ST/T Changes and No evidence of ischemia. Interpreted by me. Reviewed by me. Administered Medications: 20:30 Drug: Norvasc (amlodipine) 5 mg Route: PO; ea 20:40 Drug: Valtrex 1000 mg Route: PO; ea 20:40 Drug: predniSONE 60 mg Route: PO; ea 20:40 Drug: Aspirin Chewable Tablet 324 mg Route: PO; ea Disposition: 10/06/20 20:19 Discharged to Home. Impression: Goetz's palsy, Essential (primary) hypertension. - Condition is Stable. - Discharge Instructions: Goetz Palsy, Adult, Hypertension, Hypertension, [id number], Aspirin and Your Heart. - Prescriptions for Artificial Tears - instill 1 application by OPHTHALMIC route 6 times per day; 30 milliliter. Valtrex 1 g Oral Tablet - take 1 tablet by ORAL route every 8 hours for 7 days; 21 tablet. Prednisone 20 mg Oral Tablet - take 2 tablet by ORAL route once daily for 5 days; 10 tablet. Norvasc 5 mg Oral Tablet - take 1 tablet by ORAL route once daily; 20 tablet. - Medication Reconciliation Form, Thank You Letter, Antibiotic Education, Prescription Opioid Use form. - Follow up: Private Physician; When: 2 - 3 days; Reason: Recheck today's complaints, Continuance of care, Re-evaluation by your physician. Follow up: Brandon Stevenson MD; When: 2 - 3 days; Reason: Recheck today's complaints, Re-evaluation by your physician. - Problem is new. - Symptoms have improved. Signatures: Dispatcher [employer] EDMN Jorge Hinkle MD MD cha Antunez, Elena, RN RN ea Corrections: (The following items were deleted from the chart) 20:48 20:19 10/06/2020 20:19 Discharged to Home. Impression: Goetz's palsy; Essential ea (primary) hypertension. Condition is Stable. Forms are Medication Reconciliation Form, Thank You Letter, Antibiotic Education, Prescription Opioid Use. Follow up: Private Physician; When: 2 - 3 days; Reason: Recheck today's complaints, Continuance of care, Re-evaluation by your physician. Follow up: Brandon Stevenson; When: 2 - 3 days; Reason: Recheck today's complaints, Re-evaluation by your physician. Problem is new. Symptoms have improved. clemente
[2020-10-06] MEDS ORDERED: predniSONE 20 MG TAB ONE (20:43)
[2020-10-06] MEDS ORDERED: AMLODIPINE 5 MG TAB ONE (20:43)
[2020-10-06] MEDS ORDERED: ASPIRIN 81 MG CHEWABLE TABLET ONE (20:43)
[2020-10-06 20:49] LABS: Urine Blood NEGATIVE (NEG); Urine Glucose NEGATIVE (NEG); Urine Protein 1+ (NEG); Urine Specific Gravity >1.030 (1.005-1.030); Urine pH 5.5 (5.0-7.0)
[2020-10-06] MEDS ORDERED: VALACYCLOVIR 500 MG TAB ONE (20:50)
[2020-10-06 20:56] VITALS: BP 159/110; O2SAT 100
--- NOTE | 2020-10-07 16:49 | EKG ---
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
== END 2020-10-06 20:48 | disposition home or self-care (01) ==
LOC: ER 19:10
DX: G51.0 Bell's palsy (principal); I10 Essential (primary) hypertension
CPT/HCPCS: 85025; 80048; 36415; 81025; 85610; 82947; 85730; 81003; 70450; 71045; J7512; 93005; 99284

== ENCOUNTER 2021-03-22 18:21 | Emergency (ER) | payer OTHER ==
--- NOTE | 2021-03-22 19:40 | RAD REPORT ---
EXAM DESCRIPTION: RAD - Forearm Right - 03/22/2021 7:26 pm CLINICAL HISTORY: Right arm pain status post injury FINDINGS: No fracture is seen. A laceration involves the anteromedial soft tissues of the mid forearm. A radiopaque foreign body is not seen
[2021-03-22] MEDS ORDERED: LIDOCAINE 1% MPF 30 ML VIAL ONE (19:58)
[2021-03-22] MEDS ORDERED: BUPIVACAINE 0.5% PF 10 ML VIAL ONE (19:58)
[2021-03-22] MEDS ORDERED: TETANUS & DIPHTHERIA TOX,ADULT 0.5 ML VIAL ONE (19:58)
[2021-03-22] MEDS ORDERED: CEFAZOLIN/SWI 1gm 1 GM/10 ML SYR ONE (19:58)
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
[2021-03-22 20:48] VITALS: TEMP 98.2
[2021-03-22 20:49] VITALS: BP 150/79; O2SAT 97
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
== END 2021-03-22 20:29 | disposition left against medical advice (07) ==
LOC: ER 18:21
DX: S51.811A Laceration without foreign body of right forearm, initial encounter (principal); W25.XXXA Contact with sharp glass, initial encounter; Y93.89 Activity, other specified; I10 Essential (primary) hypertension; J30.81 Allergic rhinitis due to animal (cat) (dog) hair and dander; Z23 Encounter for immunization
CPT/HCPCS: 73090; 90471; 90714; 96374; 99284; J0690

== ENCOUNTER 2024-05-02 20:10 | Emergency (ER) | payer SELFPAY ==
[2024-05-02] MEDS ORDERED: ONDANSETRON 4 MG/2 ML VIAL ONE (20:29)
[2024-05-02] MEDS ORDERED: FAMOTIDINE 20 MG/2 ML VIAL IV ONE (20:30)
[2024-05-02] MEDS ORDERED: NA CHLORIDE 0.9% 1,000 ML ONE (20:30)
[2024-05-02 20:58] LABS: Absolute Eosinophils 0.1 K/uL (0-0.5); Absolute Lymphocytes (CBC) 2.7 K/uL (0.7-4.9); Absolute Monocytes 0.7 K/uL (0.1-1.3); Absolute Neutrophil 7.7 K/uL (1.8-8.0); Basophils % 0.2 % (0-1.3); Eosinophils % 0.7 % (0-4.4); Hematocrit 35.1 % (36.0-45.0); Hemoglobin 11.9 g/dL (12.0-15.0); Lymphocytes % 23.8 % (15.3-44.8); MCH 29.3 pg (27.0-35.0); MCHC 33.8 g/dL (32.0-36.0); MCV 86.6 fL (80-100); MPV 9.9 fL (7.6-11.3); Neutrophils % 69.3 % (41.7-73.7); Nucleated Red Blood Cells % 0.1 % (0-0); Platelets 230 thou/uL (152-406); RBC Red Blood Cell Count 4.06 M/uL (3.86-4.86); Red Cell Distribution Width 14.2 % (12.1-15.2)
[2024-05-02 21:06] LABS: Albumin 3.3 g/dL (3.4-5.0); Albumin/Globulin Ratio 0.9 (1.1-1.8); Anion Gap 7.6 mEq/L (5.0-15.0); Bilirubin Total 0.3 mg/dL (0.2-1.0); Globulin 3.8 g/dL (2.3-3.5); Potassium 3.6 mEq/L (3.5-5.1); Protein, Total 7.1 g/dL (6.4-8.2)
[2024-05-02 21:14] LABS: SARS-CoV-2 Antigen CONTROL BLUE LINE VIS/BG OK; SARS-CoV-2 Antigen Rapid Res Negative (Negative)
[2024-05-02 21:16] LABS: Specific Gravity 1.027 (1.005-1.030)
[2024-05-02 21:19] LABS: Specific Gravity 1.027 (1.005-1.030); Urine Bacteria None Seen /HPF (<20); Urine Bilirubin NEGATIVE (Negative); Urine Blood Negative (Negative); Urine Clarity Turbid (Clear); Urine Color Light-Yellow (Yellow); Urine Culture Reflex Order NOT NEEDED; Urine Glucose NEGATIVE (Negative); Urine Ketones NEGATIVE (Negative); Urine Microscopic Reflex YN ORDER UMIC; Urine Nitrite NEGATIVE (Negative); Urine Protein NEGATIVE (Negative); Urine RBC <5 /HPF (None Seen); Urine Urobilinogen Normal (Normal); Urine WBC <5 /HPF (<5)
--- NOTE | 2024-05-02 22:26 | RAD REPORT ---
EXAM: Transvaginal OB HISTORY: ABD CRAMPING, COMPARISON: None TECHNIQUE: Multiple grayscale and color Doppler images were obtained in a transvaginal pelvic ultraso und. Spectral analysis of the Doppler waveforms of the ovaries were performed. FINDINGS: UTERUS: There is an intrauterine gestational sac. This contains a yolk sac and pole. Hoskins-rump length: 2.1 cm which estimates gestational age at 8 week 5 day. A heart rate is detected at 178 bpm. No evidence of subchorionic hemorrhage. No free fluid is seen in the pelvis. RIGHT OVARY: Normal flow without focal mass. LEFT OVARY: Normal flow without focal mass. IMPRESSION: Single live intrauterine with estimated age of 8 week 5 day.
--- NOTE | 2024-05-02 22:26 | RAD REPORT ---
EXAMINATION: US LOWER EXTREMITY VENOUS DOPPLER BILATERAL CLINICAL INDICATION: Female, 38 years old.PAIN TECHNIQUE: Complete bilateral duplex sonography of the lower extremity veins was performed. The exami nation included compression for vein patency, color Doppler imaging and flow augmentation in response to distal compression of the distal external iliac, common femoral, femoral, popliteal, simran valencia, tibial and great saphenous veins. [id number]. COMPARISON: No prior exams FINDINGS: Duplex sonography imaging demonstrates all deep examined to be fully compressible with spontaneous, p hasic and augmented flow bilaterally. IMPRESSION: No evidence of deep venous thrombosis seen in either lower extremity.
--- NOTE | 2024-05-02 22:49 | ER ---
Nurse's Notes [facility] Name: Kasey Stapleton Age: 38 yrs Sex: Female : 1985 Arrival Date: 05/02/2024 Time: 20:10 Bed 14 Private MD: Diagnosis: Lower abdominal pain, unspecified;Other specified related conditions, first trimester;Cough;Elevated blood-pressure reading, without diagnosis of hypertension Presentation: 05/02 20:17 Chief complaint: Patient states: cough and congestion since yesterday after choking. tm6 Sharp pain in LLQ and shortness of breath x1 week. N/V a few days ago. Coronavirus screen: Vaccine status:. Coronavirus screen: Vaccine status: Patient reports receiving the 2nd dose of the covid vaccine. Ebola Screen: Patient negative for fever greater than or equal to 101.5 degrees Fahrenheit, and additional compatible Ebola Virus Disease symptoms Patient denies exposure to infectious person. Patient denies travel to an Ebola-affected area in the 21 days before illness onset. No symptoms or risks identified at this time. Initial Sepsis Screen: Does the patient meet any 2 criteria? No. Patient's initial sepsis screen is negative. Does the patient have a suspected source of infection? No. Patient's initial sepsis screen is negative. Initial Sepsis Screen: Does the patient meet any 2 criteria? HR > 90 bpm. Risk Assessment: Do you want to hurt yourself or someone else?. Onset of symptoms was April 25, 2024. 20:17 Method Of Arrival: Ambulatory tm6 20:17 Acuity: MARGARET 3 tm6 Triage Assessment: 20:19 General: Appears uncomfortable, Behavior is calm, cooperative. Pain: Complains of pain tm6 in left lower quadrant Pain currently is 9 out of 10 on a pain scale. Pain began one week ago. EENT: Reports nasal congestion nasal discharge. Neuro: Level of Consciousness is awake, alert, obeys commands, Oriented to person, place, time, situation. Cardiovascular: Patient's skin is warm and dry. Respiratory: Reports shortness of breath since one week ago cough that is Airway is patent Respiratory effort is labored, Respiratory pattern is regular, symmetrical. GI: Abdomen is flat, non-distended, Reports lower abdominal pain. : No signs and/or symptoms were reported regarding the genitourinary system. Derm: No signs and/or symptoms reported regarding the dermatologic system. Musculoskeletal: No signs and/or symptoms reported regarding the musculoskeletal system. 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 - Infectious Disease History:: Denies. - Social history:: Smoking status: Patient reports the use of cigarette tobacco products, smokes one pack cigarettes per day. hasn't smoked in 1 week, Patient/guardian denies using alcohol. Screenin:49 [facility] ED Fall Risk Assessment (Adult) History of falling in the last 3 months, me1 including since admission No falls in past 3 months (0 pts) Confusion or Disorientation No (0 pts) Intoxicated or Sedated No (0 pts) Impaired Gait No (0 pts) Mobility Assist Device Used No (0 pt) Altered Elimination No (0 pt) Score/Fall Risk Level 0 - 2 = Low Risk Maintained a safe environment, Provided non-skid footwear, Hourly rounding (assess needs \T\ fall precautionary measures) done. Abuse screen: Denies threats or abuse. Nutritional screening: No deficits noted. Tuberculosis screening: No symptoms or risk factors identified. Assessment: 20:49 General: Appears uncomfortable, well groomed, well developed, well nourished, Behavior me1 is calm, cooperative, appropriate for age, Reports cough and congestion since yesterday after choking. Sharp pain in LLQ and shortness of breath x1 week. N/V a few days ago. Patient states she took a home test yesterday that was positive. LMP: 03/08/24. Pain: Complains of pain in left lower quadrant Pain does not radiate. Pain currently is 9 out of 10 on a pain scale. Quality of pain is described as sharp, Pain began 2-3 days ago. Is intermittent. Neuro: Level of Consciousness is awake, alert, obeys commands, Oriented to person, place, time, situation, Appropriate for age. Cardiovascular: Patient's skin is warm and dry. Respiratory: Airway is patent Respiratory effort is even, unlabored, Respiratory pattern is regular, symmetrical. GI: Abdomen is round Bowel sounds present X 4 quads. Abd is soft X 4 quads Reports lower abdominal pain, nausea, vomiting, since 4 days ago. : No signs and/or symptoms were reported regarding the genitourinary system. EENT: No signs and/or symptoms were reported regarding the EENT system. Derm: Skin is intact, is healthy with good turgor, Skin is pink, warm \T\ dry. Musculoskeletal: No signs and/or symptoms reported regarding the musculoskeletal system. 21:23 Reassessment: Patient appears in no apparent distress at this time. Patient and/or jb4 family updated on plan of care and expected duration. Pain level reassessed. Patient is alert, oriented x 3, equal unlabored respirations, skin warm/dry/pink. 23:13 Reassessment: Patient appears in no apparent distress at this time. Patient and/or jb4 family updated on plan of care and expected duration. Pain level reassessed. Patient is alert, oriented x 3, equal unlabored respirations, skin warm/dry/pink. Vital Signs: 20:16 BP 163 / 112; Pulse 104; Resp 20; Temp 98.8(O); Pulse Ox 100% on R/A; MAP 125 mmHg; tm6 Weight 72.57 kg; Height 5 ft. 6 in. ; Pain 9/10; 21:23 BP 159 / 106; Pulse 79; Resp 16; Pulse Ox 100% on R/A; jb4 20:16 Body Mass Index 25.82 (72.57 kg, 167.64 cm) tm6 20:16 Pain Scale: Adult tm6 ED Course: 20:13 Patient arrived in ED. jj6 20:19 Triage completed. tm6 20:19 Arm band placed on left wrist. tm6 20:21 Jorge Ryan PA is PHCP. cp 20:21 Aaron Omalley MD is Attending Physician. cp 20:43 Mandi Delgado RN is Primary Nurse. me1 20:46 CBC with Diff Sent. me1 20:46 CMP Sent. me1 20:46 Lipase Sent. me1 20:46 SARS RAPID Sent. me1 20:46 Influenza Screen (a \T\ B) Sent. me1 20:46 Quantitative Hcg Sent. me1 20:46 Abo/rh Typing Sent. me1 20:49 Patient has correct armband on for positive identification. Bed in low position. Call me1 light in reach. Side rails up X 1. Provided Education on: POC. Verbalized understanding. . Client placed on continuous cardiac and pulse oximetry monitoring. NIBP monitoring applied. Pulse ox on. NIBP on. 20:49 CBC with Diff Sent. ha1 20:49 No provider procedures requiring assistance completed. me1 20:50 CMP Sent. ha1 20:50 Lipase Sent. ha1 20:50 Influenza Screen (a \T\ B) Sent. ha1 20:50 SARS RAPID Sent. ha1 21:05 Initial lab(s) drawn, by ar, sent to lab. Urine collected: clean [place] [facility] [place], EKG done, by ED staff, reviewed by Jorge GRIFFITH. 21:06 Urinalysis w/ reflexes Sent. me1 22:16 US Transvaginal Ob In Process Unspecified. EDMS 22:24 US Extremity Venous W Compression Sathya In Process Unspecified. EDMS 23:13 IV discontinued, intact, bleeding controlled, No redness/swelling at site. Pressure jb4 dressing applied. Administered Medications: 20:46 Drug: Ondansetron IVP 4 mg IVP once; over 2 minutes Route: IVP; Site: right antecubital;me1 21:06 Follow up: Response: No adverse reaction; Nausea is decreased me1 20:46 Drug: NS 0.9% IV 1000 ml IV at 1 bolus Per protocol; to be given as a bolus over 60 me1 minutes Route: IV; Rate: 1 bolus; Site: right antecubital; 21:46 Follow up: Response: No adverse reaction; IV Status: Completed infusion; IV Intake: jb4 1000ml 20:47 Drug: Famotidine IVP 20 mg IVP once; dilute with 10 mL 0.9% NaCl; give over 2 minutes me1 Route: IVP; Site: right antecubital; 21:06 Follow up: Response: No adverse reaction me1 Medication: 20:49 VIS not applicable for this client. me1 Intake: 21:46 IV: 1000ml; Total: 1000ml. jb4 Outcome: 22:48 Discharge ordered by cp 23:13 Discharged to home ambulatory, jb4 23:13 Condition: stable 23:13 Discharge instructions given to patient, Instructed on discharge instructions, follow up and referral plans. medication usage, Demonstrated understanding of instructions, follow-up care, medications, Prescriptions given X 1, 23:14 Patient left the ED. jb4 Signatures: Dispatcher [employer] EDMS Jorge Ryan PA PA cp Bryson, James, RN RN jb4 Chandni Muñiz jj6 Daniella Garcia RN RN 1 Mandi Delgado RN RN ar1 Moncho Pabon RN RN tm6 Corrections: (The following items were deleted from the chart) 20:49 20:17 Chief complaint: Patient states: cough and congestion since yesterday after me1 choking. Sharp pain in LLQ and shortness of breath x1 week. N/V a few days ago tm6 20:50 20:46 BASIC METABOLIC PANEL+C.LAB.BRZ drawn and sent. ar1 EDMT
--- NOTE | 2024-05-02 22:49 | EDPHYS ---
Physician Documentation [facility] Name: Kasey Stapleton Age: 38 yrs Sex: Female : 1985 Arrival Date: 05/02/2024 Time: 20:10 Bed 14 Private MD: ED Physician Aaron Omalley HPI: 05/02 20:21 This 38 yrs old Black Female presents to ER via Ambulatory with complaints of Abdominal sp4 Pain, Cough, Congestion. 20:21 The patient presents with abdominal pain in the lower abdomen. cp 20:21 Onset: The symptoms/episode began/occurred last week. The symptoms do not radiate. cp 20:21 Associated signs and symptoms: Pertinent positives: cough, congestion, shortness of cp breath. Patient reports positive home test recently. 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 - Infectious Disease History:: Denies. - Social history:: Smoking status: Patient reports the use of cigarette tobacco products, smokes one pack cigarettes per day. hasn't smoked in 1 week, Patient/guardian denies using alcohol. ROS: 20:25 Constitutional: Negative for body aches, chills, fever, poor PO intake, cp 20:25 Eyes: Negative for injury, pain, redness, and discharge, cp 20:25 ENT: Negative for drainage from ear(s), ear pain, sore throat, difficulty swallowing, difficulty handling secretions, 20:25 Cardiovascular: Negative for chest pain, edema, palpitations, 20:25 Respiratory: Positive for cough, Negative for wheezing, 20:25 Abdomen/GI: Positive for abdominal pain, of the left lower quadrant, Negative for vomiting, diarrhea, constipation, 20:25 Back: Negative for pain at rest, pain with movement, 20:25 Neuro: Negative for altered mental status, dizziness, headache, weakness, 20:25 All other systems are negative, Exam: 20:30 Head/Face: Normocephalic, atraumatic. cp 20:30 Constitutional: The patient appears in no acute distress, alert, awake, non-diaphoretic, non-toxic, well developed, well nourished, 20:30 Eyes: Periorbital structures: appear normal, Conjunctiva: normal, no exudate, no cp injection, Sclera: no appreciated abnormality, Lids and lashes: appear normal, bilaterally, 20:30 ENT: External ear(s): are unremarkable, Nose: is normal, Mouth: Lips: moist, Oral cp mucosa: moist, Posterior pharynx: Airway: no evidence of obstruction, patent, 20:30 Chest/axilla: Inspection: normal, 20:30 Cardiovascular: Rate: tachycardic, Rhythm: regular, Edema: is not appreciated, JVD: is not appreciated, 20:30 Respiratory: the patient does not display signs of respiratory distress, Respirations: normal, no use of accessory muscles, no retractions, labored breathing, is not present, Breath sounds: decreased breath sounds, are not appreciated, stridor, is not appreciated, wheezing: is not appreciated, 20:30 Abdomen/GI: Inspection: abdomen appears normal, Bowel sounds: active, all quadrants, Palpation: soft, in all quadrants, mild abdominal tenderness, in the left lower quadrant, rebound tenderness, is not appreciated, involuntary guarding, is not appreciated, 20:30 Back: CVA tenderness, is absent, 20:30 Skin: no rash present. 20:30 Neuro: Orientation: to person, place \T\ time. Mentation: is normal, Motor: moves all fours, strength is normal, 21:05 ECG was reviewed by the Attending Physician. cp Vital Signs: 20:16 BP 163 / 112; Pulse 104; Resp 20; Temp 98.8(O); Pulse Ox 100% on R/A; MAP 125 mmHg; tm6 Weight 72.57 kg; Height 5 ft. 6 in. ; Pain 9/10; 21:23 BP 159 / 106; Pulse 79; Resp 16; Pulse Ox 100% on R/A; jb4 20:16 Body Mass Index 25.82 (72.57 kg, 167.64 cm) tm6 20:16 Pain Scale: Adult tm6 MDM: 20:22 Patient medically screened. sp4 21:00 Differential diagnosis: Ectopic , non-specific abd pain, Ovarian Torsion, cp Pelvic Inflammatory Disease, Pyelonephritis, Tubal Ovarian Abcess, Ureterolithiasis, urinary tract infection, pneumonia, bronchitis, influenza, COVID-19. 22:47 Data reviewed: vital signs, nurses notes, lab test result(s), EKG, radiologic studies, cp ultrasound, and as a result, I will discharge patient. 22:47 I considered the following discharge prescriptions or medication management in the emergency department Medications were administered in the Emergency Department. See MAR. Independent interpretation of the following test(s) in the Emergency Department EKG: See my EKG interpretation above. Counseling: I had a detailed discussion with the patient and/or guardian regarding the historical points, exam findings, and any diagnostic results supporting the discharge/admit diagnosis, lab results, radiology results, the need for outpatient follow up, an OB/Gyne specialist, to return to the emergency department if symptoms worsen or persist or if there are any questions or concerns that arise at home. Response to treatment: the patient's symptoms have mildly improved after treatment, and as a result, I will discharge patient. 05/02 20:22 Order name: CBC with Diff; Complete Time: 21:58 sp 05/02 22:31 Interpretation: Normal except: WBC 11.20; HGB 11.9; HCT 35.1. 05/02 20:22 Order name: CMP; Complete Time: 21:58 sp4 05/02 22:31 Interpretation: Normal except: CL 110. 05/02 20:22 Order name: Lipase; Complete Time: 21:58 sp4 05/02 20:22 Order name: Test, Urine; Complete Time: 21:58 sp4 05/02 20:22 Order name: Urinalysis w/ reflexes; Complete Time: 21:58 sp 05/02 20:29 Order name: SARS RAPID; Complete Time: 21:58 05/02 20:29 Order name: Influenza Screen (a \T\ B); Complete Time: 21:58 05/02 20:29 Order name: Abo/rh Typing; Complete Time: 21:58 cp 05/02 20:29 Order name: Quantitative Hcg; Complete Time: 21:58 05/02 22:31 Interpretation: Reviewed. 05/02 21:59 Order name: US Transvaginal Ob; Complete Time: 22:30 cp 05/02 21:59 Order name: US Extremity Venous W Compression Sathya; Complete Time: 22:30 cp 05/02 20:29 Order name: EKG; Complete Time: 20:29 cp 05/02 20:22 Order name: IV Saline Lock; Complete Time: 20:46 sp4 05/02 20:22 Order name: Labs collected and sent; Complete Time: 20:46 sp4 05/02 20:29 Order name: NPO; Complete Time: 20:46 cp 05/02 20:29 Order name: EKG - Nurse/Tech; Complete Time: 21:05 cp EC:05 Rate is 76 beats/min. Rhythm is regular. RI interval is normal. QRS interval is normal. cp QT interval is normal. T waves are Inverted in lead aVR. Interpreted by me. Reviewed by me. Administered Medications: 20:46 Drug: Ondansetron IVP 4 mg IVP once; over 2 minutes Route: IVP; Site: right antecubital;me1 21:06 Follow up: Response: No adverse reaction; Nausea is decreased me1 20:46 Drug: NS 0.9% IV 1000 ml IV at 1 bolus Per protocol; to be given as a bolus over 60 me1 minutes Route: IV; Rate: 1 bolus; Site: right antecubital; 21:46 Follow up: Response: No adverse reaction; IV Status: Completed infusion; IV Intake: jb4 1000ml 20:47 Drug: Famotidine IVP 20 mg IVP once; dilute with 10 mL 0.9% NaCl; give over 2 minutes me1 Route: IVP; Site: right antecubital; 21:06 Follow up: Response: No adverse reaction me1 Disposition: 23:30 Co-signature as Attending Physician, Aaron Omalley MD I agree with the assessment sp4 and plan of care. I reviewed the patient's care provided by Advanced Practice Provider \T\ agree w/ the diagnosis \T\ care plan. I personally saw the pt \T\ performed a substantive portion of the visit, incldng all aspects of the (History/Exam/Medical Decision Making). Disposition Summary: 05/02/24 22:48 Discharge Ordered Notes: Location: Home cp Problem: new cp Symptoms: have improved cp Condition: Stable cp Diagnosis - Lower abdominal pain, unspecified cp - Other specified related conditions, first trimester cp - Cough cp - Elevated blood-pressure reading, without diagnosis of hypertension cp Followup: cp - With: Private Physician - When: 1 week - Reason: Recheck today's complaints Discharge Instructions: - Discharge Summary Sheet cp - Abdominal Pain During cp - Care cp - First Trimester of cp - Form - Blood Pressure Record Sheet cp - How to Take Your Blood Pressure cp Forms: - Medication Reconciliation Form cp - Antibiotic Education cp - Prescription Opioid Use cp - Patient Portal Instructions cp - Leadership Thank You Letter cp Prescriptions: - 147-iron gluc-folic 13 mg iron- 1 mg Oral tablet - take 1 tablet ORAL route daily; 60 tablet; Refills: 0, Product Selection cp Permitted Signatures: Dispatcher [employer] EDMS Jorge Ryan PA PA cp Aaron Omalley MD MD sp4 Mandi Delgado RN RN me1 Moncho Pabon RN RN tm6 Baldemar Nixon RN jb4 Corrections: (The following items were deleted from the chart) 20:22 20:22 CBC+H.LAB.BRZ ordered. EDMS EDMS 20:22 20:22 COMPREHENSIVE METABOLIC PANEL+C.LAB.BRZ ordered. EDMS EDMS 20:22 20:22 LIPASE+C.LAB.BRZ ordered. EDMS EDMS 20:22 20:22 Test, Urine+UC.LAB.BRZ ordered. EDMS EDMS 20:22 20:22 Urinalysis+U.LAB.BRZ ordered. EDMS EDMS 20:29 20:29 Chest Single View+RAD.RAD.BRZ ordered. EDMS EDMS 20:30 20:30 Extrem Venous W Compression Sathya+US.RAD.BRZ ordered. EDMS EDMS 20:50 20:29 BASIC METABOLIC PANEL+C.LAB.BRZ ordered. EDMS EDMS 22:54 05/01 20:30 Constitutional: The patient appears in no acute distress, alert, awake, cp non-diaphoretic, non-toxic, well developed, well nourished, cp 05/02 22:54 05/01 20:30 Head/Face: Normocephalic, atraumatic. cp cp 05/03 12:40 05/02 20:21 The patient presents with abdominal pain in the lower abdomen, cp cp 05/03 12:40 05/02 20:21 Onset: The symptoms/episode began/occurred today, cp cp
[2024-05-02 23:52] VITALS: TEMP 98.8; O2SAT 100
[2024-05-02 23:53] VITALS: BP 159/106
--- NOTE | 2024-05-03 14:07 | EKG ---
Test Date: 2024-05-02 Test Time: 20:59:43 Inclusion Paraeducator: MEASUREMENT RESULTS: Intervals: Rate: 76 [place]: 142 QRSD: 84 QT: 400 QTc: 450 [place]: P: 67 [place]: 142 QRS: 70 T: 40 INTERPRETIVE STATEMENTS: Normal sinus rhythm Cannot rule out Anterior infarct, age undetermined Abnormal ECG Compared to ECG 10/06/2020 18:08:24 Myocardial infarct finding now present Electronically Signed On 05-03-24 14:06:28 CDT by Justo Law
== END 2024-05-02 23:14 | disposition home or self-care (01) ==
LOC: ER 20:10
DX: O26.891 Other specified pregnancy related conditions, first trimester (principal); R10.30 Lower abdominal pain, unspecified; R05.9 Cough, unspecified; R03.0 Elevated blood-pressure reading, without diagnosis of hypertension; Z11.52 Encounter for screening for COVID-19
CPT/HCPCS: 36415; 76817; 80053; 81001; 81025; 83690; 84702; 85025; 86900; 86901; 87804; 87811; 93005; 93970; 96361; 96374; 96375; 99284; J2405; J7030